=== PATIENT | female | born 1995 | race Caucasian/White ===

== ENCOUNTER 2018-11-11 21:52 | Observation (INO) | payer MEDICAID, SELFPAY ==
[2018-11-11 22:19] LABS: HCT 41.7 % (36.0-46.0); HGB 13.6 g/dL (12.0-15.5); Mean Corp. HGB Concentration 32.6 g/dL (32.0-36.0); Mean Corpuscular Hemoglobin 28.9 pg (27.0-33.0); Mean Corpuscular Volume 88.5 fL (80-95); Platelet Count 208 x1000/uL (130-400); RBC 4.71 m/cumm (4.00-5.20); RBC Distribution Width 14.9 % (11.7-14.6); White Blood Cell Count 9.11 k/cumm (4.4-10.8)
[2018-11-11 22:30] LABS: ALT 34 U/L (12-78); AST 14 U/L (15-37); Albumin 2.9 g/dL (3.4-5.0); Alkaline Phosphatase 125 U/L (46-116); Anion Gap 12.4 mmol/L (3-11); BUN 12 mg/dL (7-18); Bilirubin, Total 0.2 mg/dL (0.2-1.0); CO2 24.6 mmol/L (21.0-32.0); CREATININE 0.69 mg/dL (0.55-1.02); Calcium 9.3 mg/dL (8.5-10.1); Chloride 101 mmol/L (98-107); Glucose 95 mg/dL (70-100); Sodium 138 mmol/L (136-145); Total Protein 7.1 g/dL (6.4-8.2)
--- NOTE | 2018-11-11 22:47 | W.PM.DS.N ---
Date of service: 11/11/18 Time of Service: 22:47 DS: Diagnosis Discharge Diagnosis (1) Unspecified hypertension, condition or complication: Start date: 11/11/18 Start time: 17:50 Status: Acute Asessment and Plan: Nl labs. Pt will continue to take daily BP checks and notify Martha Alba by phone of BP measurement Discharge Plan Disposition Patient Disposition: HOME Condition: Fair Discharge Details Reason For Visit: HYPERTENSION Admit Date/Time: 11/11/18 21:52 Admit Provider: Martha Alba Attending Provider: Martha Alba Hospital Course Hospital Course: Eval on BC with two BP measurements with Nl CMP and CBC. Nl PE. I feel that she is OK to be discharged to home with monitoring BP on daily basis. Discharge Instructions Additional Instructions: Call Dr. Alba tomorrow with BP reading. Follow up with your CNM or myself with any concerns or questions. Activity:: Activity as Tolerated Equipment/Supplies:: No Equipment Needed Diet:: As Tolerated Discharge Orders Discharge Orders: Discharge Order (Routine); Ordered 11/11/18 Ordered By: Martha Alba Discharge Data Discharge Date/Time-TO BE ENTERED AT DEPARTURE: 11/11/18 22:53 DS: Data Labs on day of discharge: Labs from last 24 hours 11/11/18 11/11/18 22:05 22:05 WBC 9.11 RBC 4.71 Hgb 13.6 Hct 41.7 MCV 88.5 MCH 28.9 MCHC 32.6 RDW 14.9 H Plt Count 208 MPV 11.0 Sodium 138 Potassium 4.0 Chloride 101 Carbon Dioxide 24.6 Anion Gap 12.4 H BUN 12 Creatinine 0.69 Estimated GFR/1.73 m2 >= 60.00 Glucose 95 Calcium 9.3 Total Bilirubin 0.2 AST 14 L ALT 34 Alkaline Phosphatase 125 H Total Protein 7.1 Albumin 2.9 L
--- NOTE | 2018-11-12 08:11 | W.PM.HP.N ---
Date of service: 11/11/18 Time of Service: 21:50 Assessment and Plan (1) Anxiety: Current visit: No Status: Chronic Patient with a history of anxiety who demonstrates appropriate response to musculoskeletal complaints. I do not feel that anxiety is the cause of her current blood pressure issues (2) Gestational hypertension: Current visit: No Status: Acute Gestational hypertension without preeclampsia. Plan is to have her discharged home do self blood pressure monitoring and follow-up with me by phone regarding the results. She does not play any extracurricular activities other than resting and feeding her infant. She was given instructions regarding worsening headache right upper quadrant pain lower extremity edema. History of Present Illness Chief Complaint: Elevated blood pressureRequesting that the patient be evaluated for a blood pressure elevation. Narrative: Ms. Kath mena is a 23-year-old female who underwent an uncomplicated vaginal at home on 11/05/2018. I received a phone call from her asp net developer, Samanta Varela CNM, that the patient had called her that evening to report blood pressure 150/84. Patient taken her blood pressure because she was experiencing somatic complaints in her neck and shoulders. No other symptoms. Obey Varela was alerted me that the patient was coming to the closest hospital which was [facility] and I let her know that we would evaluate the patient. Past OB history: Spontaneous vaginal delivery 11 months ago. Per patient reports she had an elevated blood pressure and was observed for 24 hours as an inpatient. She did not require magnesium or antihypertensives. Because of her blood pressure elevation in the past she has a home blood pressure cuff course: She establish care with Ms. Varela's practice at 34 weeks prior to that she had been seen at another practice in her third trimester. Her blood pressure time of her initial presentation to care at [facility] on 10/02/2018 at 34w6d was 158/70. At her last office blood pressure at 38w4d EGA on 10/28/2018 was 138/60, pulse was normal on both occasions. Laboratory findings were unremarkable. Review of Systems Constitutional Reports fatigue (Exclusively breast-feeding . She has good family support) and Reports headache(s) (Patient denies) Eyes Comments: No vision changes ENT Reports headache(s) (Patient denies) Gastrointestinal Reports system reviewed and no additional complaints, except as docu Genitourinary Comments: Light lochia no uterine tenderness Musculoskeletal Reports myalgias ( along trapezius and latissimus dorsi) Integumentary/Breasts Comments: Engorgement erythema or nipple excoriation Neurologic Reports system reviewed and no additional complaints, except as docu and Reports headache(s) (Patient denies) Psychiatric Reports anxiety (Long-standing history of anxity with hospitals) Endocrine Reports fatigue (Exclusively breast-feeding infant. She has good family support) PFSH Medical History Gestational hypertension (Acute) Anxiety (Chronic) Surgical History Jaw asymmetry (Acute) Family History Father Hypertension Sister Hypertension Social History Smoking/Tobacco Use Status: Never Drug use: Never Household members: family and other Details: Currently lives with her mother. Her partner is supportive, lives out of s Number of Children: 2 Education Level: college current occupation: Not employed In current or past relationships, have you been: other Additional Social history: 2018-Dina, 2019-Yvonne, partner-Clinton. Monolingual [place] There is note in her past medical record of childhood trauma. I did not inquire further about details. History History 2 Para 2 Hx # Term Pregnancies Multiple births Hx # Pregnancies Ectopic pregnancies AB induced Hx Number of Living Children AB spontaneous Exam Narrative Exam Narrative: Patient was admitted for observation. Labs were obtained and PE was done. BP was elevated 150/90 range while being observed. No other indications on exam of pre-eclampsia. She was discharged to home accompanied by friends. Const General: no acute distress Nutritional Appearance: average body habitus Orientation: alert, awake and oriented x3 Resp Effort & Inspection: normal respiratory effort Auscultation: clear to auscultation bilaterally Cardio Rate: regular rate Rhythm: regular rhythm Heart Sounds: S2 normal GI Palpation: soft and no hepatosplenomegaly Other: Fundus has involuted 2 fingerbreadths below the umbilicus is nontender. General: deferred Back/Spine/Pelvis Thoracic/Lumbar Spine: thoracic and lumbar spine normal to inspection and other (Trapezius and latissimus dorsi tender with palpation but w/o bruising) Skin General skin exam: no rashes or lesions noted Neuro DTR's: Rt Patellar: 3+ (+/- 1 beat of clonus) and Lt Patellar: 3+ (+/- 1 beat of clonud) Psych Appearance: grossly normal Mental Status: mental status grossly normal Mood: congruent mood Affect: normal affect Attitude: cooperative Thought Content: normal Insight: insight good Results Labs : 11/11/18 22:05 11/11/18 22:05 Laboratory Results - last 24 hr 11/11/18 11/11/18 22:05 22:05 WBC 9.11 RBC 4.71 Hgb 13.6 Hct 41.7 MCV 88.5 MCH 28.9 MCHC 32.6 RDW 14.9 H Plt Count 208 MPV 11.0 Sodium 138 Potassium 4.0 Chloride 101 Carbon Dioxide 24.6 Anion Gap 12.4 H BUN 12 Creatinine 0.69 Estimated GFR/1.73 m2 >= 60.00 Glucose 95 Calcium 9.3 Total Bilirubin 0.2 AST 14 L ALT 34 Alkaline Phosphatase 125 H Total Protein 7.1 Albumin 2.9 L
--- NOTE | 2018-11-12 08:16 | HPE_ITS ---
Date of service: 11/11/18 Time of Service: 21:50 Assessment and Plan (1) Anxiety: Current visit: No Status: Chronic Patient with a history of anxiety who demonstrates appropriate response to musculoskeletal complaints. I do not feel that anxiety is the cause of her current blood pressure issues (2) Gestational hypertension: Current visit: No Status: Acute Gestational hypertension without preeclampsia. Plan is to have her discharged home do self blood pressure monitoring and follow-up with me by phone regarding the results. She does not play any extracurricular activities other than resting and feeding her infant. She was given instructions regarding worsening headache right upper quadrant pain lower extremity edema. History of Present Illness Chief Complaint: Elevated blood pressure Requesting that the patient be evaluated for a blood pressure elevation. Narrative: Ms. Kath mena is a 23-year-old female who underwent an uncomplicated vaginal at home on 11/05/2018. I received a phone call from her instructor correspondence school, Samanta Varela CNM, that the patient had called her that evening to report blood pressure 150/84. Patient taken her blood pressure because she was experiencing somatic complaints in her neck and shoulders. No other symptoms. Obey Varela was alerted me that the patient was coming to the closest hospital which was [facility] and I let her know that we would evaluate the patient. Past OB history: Spontaneous vaginal delivery 11 months ago. Per patient reports she had an elevated blood pressure and was observed for 24 hours as an inpatient. She did not require magnesium or antihypertensives. Because of her blood pressure elevation in the past she has a home blood pressure cuff course: She establish care with Ms. Varela's practice at 34 weeks prior to that she had been seen at another practice in her third trimester. Her blood pressure time of her initial presentation to care at [facility] on 10/02/2018 at 34w6d was 158/70. At her last office blood pressure at 38w4d EGA on 10/28/2018 was 138/60, pulse was normal on both occasions. Laboratory findings were unremarkable. Review of Systems Constitutional Reports fatigue (Exclusively breast-feeding infant. She has good family support) and Reports headache(s) (Patient denies) Eyes Comments: No vision changes ENT Reports headache(s) (Patient denies) Gastrointestinal Reports system reviewed and no additional complaints, except as docu Genitourinary Comments: Light lochia no uterine tenderness Musculoskeletal Reports myalgias ( along trapezius and latissimus dorsi) Integumentary/Breasts Comments: Engorgement erythema or nipple excoriation Neurologic Reports system reviewed and no additional complaints, except as docu and Reports headache(s) (Patient denies) Psychiatric Reports anxiety (Long-standing history of anxity with hospitals) Endocrine Reports fatigue (Exclusively breast-feeding . She has good family support) PFSH Medical History Gestational hypertension (Acute) Anxiety (Chronic) Surgical History Jaw asymmetry (Acute) Family History Father Hypertension Sister Hypertension Social History Smoking/Tobacco Use Status: Never Drug use: Never Household members: family and other Details: Currently lives with her mother. Her partner is supportive, lives out of s Number of Children: 2 Education Level: college current occupation: Not employed In current or past relationships, have you been: other Additional Social history: 2018-Dina, 2019-Yvonne, partner-Clinton. Monolingua l [place] There is note in her past medical record of childhood trauma. I did not inquire further about details. History History 2 Para 2 Hx # Term Pregnancies Multiple births Hx # Pregnancies Ectopic pregnancies AB induced Hx Number of Living Children AB spontaneous Exam Narrative Exam Narrative: Patient was admitted for observation. Labs were obtained and PE was done. BP was elevated 150/90 range while being observed. No other indications on exam of pre-eclampsia. She was discharged to home accompanied by friends. Const General: no acute distress Nutritional Appearance: average body habitus Orientation: alert, awake and oriented x3 Resp Effort & Inspection: normal respiratory effort Auscultation: clear to auscultation bilaterally Cardio Rate: regular rate Rhythm: regular rhythm Heart Sounds: S2 normal GI Palpation: soft and no hepatosplenomegaly Other: Fundus has involuted 2 fingerbreadths below the umbilicus is nontender. General: deferred Back/Spine/Pelvis Thoracic/Lumbar Spine: thoracic and lumbar spine normal to inspection and other (Trapezius and latissimus dorsi tender with palpation but w/o bruising) Skin General skin exam: no rashes or lesions noted Neuro DTR's: Rt Patellar: 3+ (+/- 1 beat of clonus) and Lt Patellar: 3+ (+/- 1 beat of clonud) Psych Appearance: grossly normal Mental Status: mental status grossly normal Mood: congruent mood Affect: normal affect Attitude: cooperative Thought Content: normal Insight: insight good Results Labs : 11/11/18 22:05 11/11/18 22:05 Laboratory Results - last 24 hr 11/11/18 11/11/18 22:05 22:05 WBC 9.11 RBC 4.71 Hgb 13.6 Hct 41.7 MCV 88.5 MCH 28.9 MCHC 32.6 RDW 14.9 H Plt Count 208 MPV 11.0 Sodium 138 Potassium 4.0 Chloride 101 Carbon Dioxide 24.6 Anion Gap 12.4 H BUN 12 Creatinine 0.69 Estimated GFR/1.73 m2 >= 60.00 Glucose 95 Calcium 9.3 Total Bilirubin 0.2 AST 14 L ALT 34 Alkaline Phosphatase 125 H Total Protein 7.1 Albumin 2.9 L
== END 2018-11-11 22:53 | disposition home or self-care (01) ==
PROVIDERS: Admitting Provider Obstetrics & Gynecology Gynecology; Visit Provider Obstetrics & Gynecology Gynecology
DX: O13.5 Gestational [pregnancy-induced] hypertension without significant proteinuria, complicating the puerperium (principal); O99.345 Other mental disorders complicating the puerperium; F41.9 Anxiety disorder, unspecified
CPT/HCPCS: 80053; 85027; 99221; G0378

== ENCOUNTER 2018-11-21 09:42 | Outpatient (CLI) | payer MEDICAID, SELFPAY ==
--- NOTE | 2018-11-21 10:16 | DI.US_ITS ---
SYMPTOM/DIAGNOSIS: LT SIDED AXILLARY PALPABLE LUMP, INCREASED MILK LEFT BREAST ULTRASOUND: Ultrasound examination of the breast was performed for a palpable abnormality in the axillary region. The palpable abnormality corresponds with a 16 by 9 mm. mass with typical architecture of a lymph node. No gross increase in intralesional vascular flow. A few other small lymph nodes are noted in the left axilla. No intramammary mass is identified. CONCLUSION: The palpable axillary mass corresponds to a lymph node. No breast mass identified.
== END 2018-11-21 10:02 ==
PROVIDERS: PCP Advanced Practice Midwife; Visit Provider Advanced Practice Midwife
DX: R22.32 Localized swelling, mass and lump, left upper limb (principal); R59.0 Localized enlarged lymph nodes; O92.79 Other disorders of lactation
CPT/HCPCS: 76642

== ENCOUNTER 2019-07-08 00:22 | Outpatient (CLI) | payer MEDICAID, SELFPAY ==
--- NOTE | 2019-07-08 05:43 | DI.US_ITS ---
EXAM: US ABDOMEN LIMITEDand pelvic ultrasound CLINICAL HISTORY: RLQ Pain; ? APPENDICITIS TECHNIQUE: Ultrasound performed using standard protocol. Transabdominal and transvaginal exams wer e performed of the pelvis. Imaging with linear transducer and graded compression was performed over the right lower quadrant in the area of the patient's pain. COMPARISON: US PELVIS TRANSVAGINAL from 07/08/2019 FINDINGS: Abdomen ultrasound: A blind-ending tubular structure is measured in the right lower quadrant with a d iameter of 4 millimeters which may represent the appendix. No abnormal appendix is visible. There i s no evidence of abscess or fluid collection. Pelvic ultrasound: The transabdominal images are limited by lack of bladder distension. The uterus measures 8.6 x 4.5 x 6.5 cm. No fibroids are seen. The endometrium appears homogeneous and measures 14 millimeters in thickness. Free fluid in the cul-de-sac and around the left ovary. An involuting follicle is noted on the left ovary. The right ovary appears normal. No hydronephrosis is seen. IMPRESSION: Negative right lower quadrant ultrasound. Involuting follicle in the left ovary with some surrounding fluid.
== END 2019-07-08 00:42 ==
PROVIDERS: PCP Student in an Organized Health Care Education/Training Program; Visit Provider Student in an Organized Health Care Education/Training Program
DX: R10.31 Right lower quadrant pain (principal); N83.02 Follicular cyst of left ovary; G89.29 Other chronic pain
CPT/HCPCS: 76705; 76830; 76856